=== PATIENT | female | born 1975 | race Hispanic/Latino ===

== ENCOUNTER 2017-05-14 09:51 | Emergency (ER) | payer MEDICAID, SELFPAY ==
[2017-05-14 10:59] LABS: BHCG - Serum Negative (NEGATIVE); Pregs Control Bar Appear? YES (CONTROL BAR)
[2017-05-14 11:02] LABS: #Basophils 0.1 thou/uL (0.0-0.2); #Eosinphils 0.2 thou/uL (0.0-0.7); #Lymphocytes 1.2 thou/uL (1.20-3.40); #Monocytes 0.4 thou/uL (0.11-0.59); #Neutrophils 4.5 thou/uL (1.40-6.50); %Basophils 2.1 % (0.0-1.0); %Eosinophils 3.2 % (0.0-10.0); %Lymphocytes 18.7 % (21.0-51.0); %Monocytes 6.4 % (0.0-10.0); %Neutrophils 69.6 % (42.0-75.0); Hemoglobin 7.3 g/dL (12.0-16.0); MDiff Complete? YES; Mean Corpuscular HGB CONC 27.6 g/dL (32.0-36.0); Mean Corpuscular Hemoglobin 15.3 pg (27.0-31.0); Mean Corpuscular Volume 55.3 fl (81.0-99.0); Mean Platelet Volume 10.3 fL (7.4-10.4); Platelet Count 294 thou/uL (130-400); Red Blood Cell (RBC) Count 4.77 mill/uL (4.20-5.40); White Blood Cell (WBC) Count 6.5 thou/uL (4.8-10.8)
[2017-05-14 11:03] LABS: Anisocytosis SLIGHT = 6-15 cells (100X) (0-5/hpf); Hypochromia SLIGHT = 6-15 cells (100X) (0-5/hpf); Microcytosis SLIGHT = 6-15 cells (100X) (0-5/hpf); PLT Morphology Comment Appears Adequate; Rouleaux Formation SLIGHT = 1-5 cells (100X) (None Seen)
[2017-05-14 11:34] LABS: ALT (SGPT) 10 U/L (8-55); AST (SGOT) 16 U/L (5-34); Albumin 4.1 g/dL (3.5-5.0); Alkaline Phosphatase 77 U/L (40-150); Anion Gap 12 mmol/L (10-20); BUN (Urea Nitrogen) 11 mg/dL (7.0-18.7); Bilirubin, Total 0.7 mg/dL (0.2-1.2); Calc. Creatinine Clearance 0 mL/min (70-130); Calcium 8.6 mg/dL (7.8-10.44); Carbon Dioxide 20 mmol/L (22-29); Chloride 111 mmol/L (98-107); Estimated GFR-MDRD Greater than 90; Globulin 2.9 g/dL (2.4-3.5); Glucose 85 mg/dL (70-105); Potassium 4.1 mmol/L (3.5-5.1); Sodium 139 mmol/L (136-145)
[2017-05-14] MEDS ORDERED: Sodium Chloride 0.9% 500 ML ONE (13:06)
== END 2017-05-14 15:55 | disposition home or self-care (01) ==
LOC: NAV ERS 09:51
DX: D64.9 Anemia, unspecified (principal); N92.0 Excessive and frequent menstruation with regular cycle; F17.210 Nicotine dependence, cigarettes, uncomplicated
CPT/HCPCS: 36415; 36430; 80053; 84703; 85025; 86850; 86900; 86901; 93005; J7050; P9016

== ENCOUNTER 2018-02-18 17:26 | Emergency (ER) | payer SELFPAY ==
[2018-02-18 18:07] LABS: #Basophils 0.1 thou/uL (0.0-0.2); #Eosinphils 0.3 thou/uL (0.0-0.7); #Lymphocytes 1.9 thou/uL (1.20-3.40); #Monocytes 0.6 thou/uL (0.11-0.59); #Neutrophils 5.6 thou/uL (1.40-6.50); %Basophils 1.6 % (0.0-1.0); %Eosinophils 3.4 % (0.0-10.0); %Lymphocytes 22.2 % (21.0-51.0); %Monocytes 7.2 % (0.0-10.0); %Neutrophils 65.6 % (42.0-75.0); Hemoglobin 8.9 g/dL (12.0-16.0); Mean Corpuscular HGB CONC 29.2 g/dL (32.0-36.0); Mean Corpuscular Hemoglobin 20.3 pg (27.0-31.0); Mean Corpuscular Volume 69.5 fL (78.0-98.0); Mean Platelet Volume 7.7 fL (7.4-10.4); Platelet Count 307 thou/uL (130-400); RBC Distribution Width 17.2 % (11.5-14.5); Red Blood Cell (RBC) Count 4.37 mill/uL (4.20-5.40); White Blood Cell (WBC) Count 8.6 thou/uL (4.8-10.8)
[2018-02-18 18:20] LABS: BHCG - Serum Negative (NEGATIVE); Pregs Control Bar Appear? YES (CONTROL BAR)
[2018-02-18 18:42] LABS: Anisocytosis SLIGHT = 6-15 cells (100X) (0-5/hpf); Hypochromia MODERATE=16-30 cells (100X) (0-5/hpf); MDiff Complete? YES; PLT Morphology Comment Appears Adequate; Reflex for Review?? NO
== END 2018-02-18 18:42 | disposition home or self-care (01) ==
LOC: NAV ERS 17:26
DX: N93.9 Abnormal uterine and vaginal bleeding, unspecified (principal); F17.210 Nicotine dependence, cigarettes, uncomplicated
CPT/HCPCS: 36415; 84703; 85025; 99284

== ENCOUNTER 2018-03-04 19:33 | Emergency (ER) | payer SELFPAY ==
[2018-03-04] MEDS ORDERED: diphenhydrAMINE 25 MG CAP ONE (20:17)
--- NOTE | 2018-03-04 20:53 | RAD ---
TWO VIEW CHEST: History: Dyspnea. FINDINGS: Lungs appear clear. Heart and mediastinum unremarkable. IMPRESSION: No acute process identified. POS: [facility]
== END 2018-03-04 21:39 | disposition home or self-care (01) ==
LOC: NAV ERS 19:33
DX: R06.02 Shortness of breath (principal); D50.9 Iron deficiency anemia, unspecified; Z79.899 Other long term (current) drug therapy
CPT/HCPCS: 71046; 93005; 94760